=== PATIENT | male | born 1970 | race Two or more races ===

== ENCOUNTER 2024-05-04 18:02 | Emergency (ER) | payer OTHER ==
[~2024-05-04] VITALS: Ht 180.3 cm; Wt 136.1 kg
[2024-05-04] MEDS ORDERED: LASIX20 MG PO (18:26)
[2024-05-04] MEDS ORDERED: ZESTRIL40 M1 PO (18:26)
[2024-05-04] MEDS ORDERED: ORPHENADRINE CITRATE 30 MG/ML AMPUL IM ONE (19:30)
[2024-05-04 23:52] LABS: PH,URINE 5.5 (5.0-8.0); URINE APPEARANCE Clear; URINE BILIRRUBIN Negative (NEGATIVE); URINE BLOOD Negative; URINE COLOR Yellow; URINE GLUCOSE Negative (NEGATIVE); URINE KETONE Negative (NEGATIVE); URINE LEUKOCYTE Trace; URINE NITRATE Negative; URINE PROTEIN Negative (NEGATIVE); URINE UROBILINOGEN 0.2 E.U./dl
[2024-05-04 23:56] LABS: URINE EPITHELIAL CELLS 3.1 uL (0.0-38.8); URINE RBC 32.1 uL (0.0-20.8); URINE WBC 33.5 uL (0.0-23.2)
[2024-05-05 00:28] LABS: URINE CAST 0.29 uL (0.0-1.40)
[2024-05-05] MEDS ORDERED: NORFLEX100MG PO (00:28)
[2024-05-05] MEDS ORDERED: 8 HOUR650 MG PO (00:28)
[2024-05-05 01:33] LABS: URINE CRYSTALS MANY /HPF
== END 2024-05-05 00:34 | disposition home or self-care (01) ==
LOC: ER 18:05
PROVIDERS: Preventive Medicine Public Health & General Preventive Medicine
DX: S60.222A Contusion of left hand, initial encounter (principal); S40.012A Contusion of left shoulder, initial encounter; S60.212A Contusion of left wrist, initial encounter; S30.0XXA Contusion of lower back and pelvis, initial encounter; V49.9XXA Car occupant (driver) (passenger) injured in unspecified traffic accident, initial encounter; Y93.89 Activity, other specified; Y92.413 State road as the place of occurrence of the external cause; Y99.9 Unspecified external cause status; M51.369 Other intervertebral disc degeneration, lumbar region without mention of lumbar back pain or lower extremity pain; Z88.6 Allergy status to analgesic agent